=== PATIENT | female | born 1970 | race Caucasian/White ===

== ENCOUNTER → 2018-01-29 | Outpatient (CLI) | payer BC | END | disposition home or self-care (01) | LOC: KCIC MRI 13:28 | DX: M51.26 Other intervertebral disc displacement, lumbar region (principal); M51.36 Other intervertebral disc degeneration, lumbar region; M48.061 Spinal stenosis, lumbar region without neurogenic claudication | CPT/HCPCS: 72148 ==

== ENCOUNTER → 2018-02-05 | Outpatient (CLI) | payer BC | END | disposition home or self-care (01) | LOC: KCIC 13:02 | DX: M16.12 Unilateral primary osteoarthritis, left hip (principal) | CPT/HCPCS: 73502 ==

== ENCOUNTER → 2018-07-11 | Outpatient (CLI) | payer BC ==
[~2018-07-11] MED LIST: ATOR40TA PO; LEVO125T5 PO
[2018-07-11] MEDS: GADOBUTROL 10 MMOL/10 ML VIAL IV ONE (11:59)
--- NOTE | 2018-07-11 16:43 | KCIC ---
MRI pelvis with and without contrast July 11, 2018 INDICATION: Pelvic pain. Low back pain. COMPARISON: None available. TECHNIQUE: Multiplanar, multisequence MR imaging of the pelvis was performed before and after the administration of 8 cc gadolinium-based contrast. FINDINGS: Evaluation is degraded by motion artifact. No suspicious pathologically enlarged lymph nodes are identified in the pelvis. There is no free fluid. No free intraperitoneal air. Small large bowel loops are normal in caliber. No evidence for bowel obstruction or inflammation. Urinary bladder is within normal limits given degree of distention. No suspicious osseous abnormalities visualized. There is mild edema involving the right acetabulum without definite fracture or suspicious osseous abnormality. Findings may represent contusive changes. The uterus measures 8.1 cm (length) by 5.0 cm (AP) by 6.6 cm (transverse). There is thickening of the posterior junctional zone measuring up to 12 mm suggestive of adenomyosis. Circumscribed hypointense masses are identified compatible leiomyoma ptosis. There is a subserosal pedunculated mass along the right uterine fundus which measures 3.0 x 2.8 x 2.8 cm. A right anterior lower uterine segment circumscribed mass which is predominantly intramural measures 1.9 x 1.2 x 2.1 cm. A left uterine body mass measures 1.7 x 1.2 x 1.6 cm and is predominantly intramural with a subserosal component. No endometrial fibroids are visualized. Nabothian cysts are identified measuring up to 11 mm. Left ovary measures 2.3 x 1.6 x 1.7 cm. Right ovary measures 2.6 x 1.7 x 1.8 cm. Follicular changes are identified bilaterally. No suspicious adnexal masses are identified. IMPRESSION: 1. Multiple uterine leiomyoma are identified predominantly intramural and a single pedunculated fibroid in the right fundus measuring 3.0 x 2.8 x 2.8 cm. 2. There suggestion of adenomyomatosis with thickening of the posterior junctional zone measuring up to 12 mm. Findings are limited by motion artifact. 3. No suspicious adnexal masses are identified. 4. There is edema involving the right superior acetabulum. Findings may represent bone contusion. Correlate with any recent history of trauma. No definite fracture is visualized. Electronically signed by: Marivel Tarango MD (07/11/2018 4:40 PM) [facility]
== END | disposition home or self-care (01) ==
LOC: KCIC MRI 10:44
PROVIDERS: ATTEND Neuromusculoskeletal Medicine & OMM
DX: D25.1 Intramural leiomyoma of uterus (principal); N88.8 Other specified noninflammatory disorders of cervix uteri; M16.12 Unilateral primary osteoarthritis, left hip
CPT/HCPCS: 72197; A9585

== ENCOUNTER → 2018-09-03 | Outpatient (CLI) | payer BC ==
[~2018-09-03] MED LIST changes: +GADOBUTROL 7.5 MMOL/7.5 ML VIAL INT ART ONE; +IOHEXOL 300 MG/ML 10ML VIAL. INT ART ONE; +LIDOCAINE 1% Multi-Dose 20 ML VIAL. ID ONE
--- NOTE | 2018-09-03 12:30 | KCIC ---
MR arthrogram right hip dated 09/03/2018 11:45 AM Indication: Hip pain , possible labral tear. . Pain Comparison: No comparison is available. Technique: Routine MR arthrogram performed following the intra-articular injection of dilute gadolinium. Injection portion the study will be reported separately. Findings: Adequate distention of the joint space with contrast material. Small amount of contrast extends external to the joint capsule superior laterally. The right hip labrum is somewhat thinned and frayed in appearance. No discrete linear tear or displaced tear. No para labral cyst. There is mild thinning and surface irregularity of the articular cartilage of the anterior acetabulum and femoral head. No definite full-thickness cartilage defect, although there is some subchondral cystic change at the anterior acetabulum. No loose body. Minimal increased signal within the gluteus minimus and gluteus medius trochanteric attachment's. No focal tear. No significant trochanteric bursal fluid collection. The proximal hamstring tendon complex is intact. Iliopsoas is intact. Bone marrow signal is homogeneous. No marrow edema. Limited imaged portions of the pelvis are unremarkable. IMPRESSION: 1. Thinning and irregularity of the anterior superior right hip labrum, likely related to early degenerative fraying. No discrete tear. 2. 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 Near full-thickness cartilage loss over the anterior acetabulum and femoral head. 3. Mild gluteus minimus and gluteus medius tendinosis. Electronically signed by: Mark Hough MD (09/03/2018 12:26 PM) [email or web address]
--- NOTE | 2018-09-03 13:33 | KCIC ---
Fluoroscopic guided bilateral hip arthrogram for MRI dated 09/03/2018. No comparison available. Clinical data indication: Hip pain. TECHNIQUE: Potential benefits and risks of the procedure were discussed with the patient and informed consent was obtained. Bilateral hip were prepped and draped in a sterile fashion. After local anesthesia, a 22-gauge spinal needles were placed into the bilateral hip joint using fluoroscopic guidance. Approximately 15 cc of dilute gadolinium solution was injected in the bilateral hip and the needle was removed. Hemostasis was obtained the puncture site and a dry sterile dressing was applied. Patient tolerated the procedure well. There were no immediate complication. Patient was then sent to MR suite for further imaging. Fluoroscopic time 1.47 minutes on the right and 1.65 minutes on the left. 2 images. FINDINGS: Images show needle at the lateral femoral head/neck junction. Contrast material fills the joint spaces. IMPRESSION: Bilateral hip arthrogram for MRI. Electronically signed by: Mark Hough MD (09/03/2018 1:30 PM) [email or web address]
--- NOTE | 2018-09-03 14:54 | KCIC ---
MR arthrogram left hip dated 09/03/2018. No comparison available. CLINICAL INDICATION: Left hip pain. TECHNIQUE: Routine MR arthrogram of left hip performed following the intra-articular injection of dilute gadolinium. Injection portion the study will be reported separately. FINDINGS: Adequate distention of the joint space with contrast material. There is moderate hypertrophic change of the left hip joint with thinning and surface irregularity of the articular cartilage throughout. Probable full-thickness cartilage loss over the weightbearing surfaces acetabulum and weightbearing surface femoral head. There is outward convex deformity of the femoral head/neck junction. Mild subchondral edema within the acetabulum and femoral head. There is blunted morphology of the left hip labrum with little definable labral tissue superior laterally. No displaced component. No intra-articular loose body. There is a tiny para labral cyst. Mild increased signal within the gluteus minimus and gluteus medius tendons at their trochanteric attachment. Proximal hamstring tendon complex is intact. Iliopsoas is intact. No additional bony or soft tissue abnormality. IMPRESSION: 1. Moderate degenerative arthrosis and chondromalacia at the left hip joint with probable full-thickness cartilage loss at the weightbearing surfaces. 2. 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 3. Outward convex deformity of the lateral femoral head/neck junction raising the question of femoral acetabular impingement. 4. Mild gluteus minimus and gluteus medius tendinosis. Electronically signed by: Mark Hough MD (09/03/2018 2:51 PM) [facility]2
== END | disposition home or self-care (01) ==
LOC: KCIC 10:11
PROVIDERS: ATTEND Neuromusculoskeletal Medicine & OMM
DX: S73.192A Other sprain of left hip, initial encounter (principal); M16.0 Bilateral primary osteoarthritis of hip; M94.251 Chondromalacia, right hip; M76.01 Gluteal tendinitis, right hip; M94.252 Chondromalacia, left hip; X58.XXXA Exposure to other specified factors, initial encounter; Y93.89 Activity, other specified; Y92.89 Other specified places as the place of occurrence of the external cause; Y99.8 Other external cause status
CPT/HCPCS: 73525; 73722; A9585; Q9967

== ENCOUNTER → 2019-11-12 | Outpatient (CLI) | payer BC ==
[~2019-11-12] MED LIST changes: -GADOBUTROL 7.5 MMOL/7.5 ML VIAL INT ART ONE; -IOHEXOL 300 MG/ML 10ML VIAL. INT ART ONE; -LIDOCAINE 1% Multi-Dose 20 ML VIAL. ID ONE
--- NOTE | 2019-11-12 17:18 | KCIC ---
Bilateral digital screening mammograms and tomosynthesis Reason for examination: Routine screening. Comparison is made to previous study dated July 03, 2013 and June 26, 2011 Routine CC and MLO digital views obtained. Interpretation was made with the benefit of CAD. The skin and nipples show no abnormalities. No abnormal lymph nodes are seen. The breast parenchyma is scattered fibroglandular elements. (Breast density: Category B.) There are no suspicious masses, suspicious calcifications or architectural distortions. Left upper outer posterior breast intramammary lymph node is stable, with a separate smaller intramammary lymph node of the left outer posterior breast on MLO tomosynthesis, considered benign. Subcentimeter oval circumscribed mass right upper breast mid depth with benign-type calcifications typical of an involuted fibroadenoma, this mass was present on prior studies, considered benign. At the left upper outer breast 7 cm from the nipple on the reconstructive CC and MLO mammograms as well as on tomosynthesis CC image 54 and MLO tomosynthesis image 47 there is a subcentimeter oval circumscribed mass new from prior studies. Elsewhere scattered within both breasts are small glandular nodular densities. Impression: Left upper outer breast subcentimeter mass new from the prior study. Bilateral nodular glandular asymmetries. Further evaluation with bilateral breast ultrasound is advised. BI-RADS Category 0: Incomplete examination. "Our facility is accredited by the [employer] Mammography Program." This patient's information has been entered into a reminder system for the patient to be notified with the results of her examination and a target date for the next mammogram. Electronically signed by: Donta Valdez MD (11/12/2019 5:14 PM) [facility]
== END | disposition home or self-care (01) ==
LOC: KCIC MAMMO 12:51
PROVIDERS: ATTEND Nurse Practitioner Family
DX: Z12.31 Encounter for screening mammogram for malignant neoplasm of breast (principal); N63.21 Unspecified lump in the left breast, upper outer quadrant; N64.89 Other specified disorders of breast
CPT/HCPCS: 77063; 77067

== ENCOUNTER → 2019-11-20 | Outpatient (CLI) | payer BC ==
--- NOTE | 2019-11-20 14:28 | KCIC ---
Bilateral breast ultrasound: Reason for examination: Small nodular densities bilaterally on screening mammogram. Comparison is made to mammographic exam dated 11/12/2019. Bilateral whole breast ultrasound including evaluation of all 4 quadrants and the retroareolar and axillary regions of both breasts was performed. In the right breast at the 11:30 position 5 cm from the nipple, there is a small 3.1 mm hypoechoic nodule which is fairly well-circumscribed and has benign appearance. No other cystic or solid nodules are identified in the right breast. No abnormal appearing lymph nodes are seen in the right axilla. In the left breast, there are no discrete cystic or solid nodules or architectural distortions. No abnormal appearing lymph nodes are seen in the axilla. IMPRESSION: Benign-appearing 3.1 mm nodule in the right breast at the 11:30 position. No discrete nodules in the left breast. Recommend reevaluation with right breast ultrasound in 6 months and reevaluation of the left breast with mammograms in 6 months. BI-RADS Category 3: Probably Benign. "Our facility is accredited by the [employer] Mammography [employer]." This patient's information has been entered into a reminder system for the patient to be notified with the results of her examination and a target date for the next mammogram. Electronically signed by: Claudette Mcgovern MD (11/20/2019 2:25 PM) [facility]
== END | disposition home or self-care (01) ==
LOC: KCIC US 13:35
PROVIDERS: ATTEND Nurse Practitioner Family
DX: N63.11 Unspecified lump in the right breast, upper outer quadrant (principal)
CPT/HCPCS: 76641

== ENCOUNTER → 2019-12-08 | Outpatient (CLI) | payer BC ==
--- NOTE | 2019-12-08 16:44 | KCIC ---
Pelvic ultrasound dated 12/08/2019. Comparison made to 07/11/2018. CLINICAL INDICATION: Follow-up fibroids. Pelvic pain. FINDINGS: Transabdominal and transvaginal imaging performed. Uterus measures 11.3 x 5.6 x 4.9 cm. Multiple solid nodular foci along the serosal margin, largest measures 3.6 cm at the fundus. The endometrial complex is within normal limits for thickness measuring 3 mm. Is a small nabothian cyst. Neither ovary is clearly identified, likely related to overlying bowel gas. There is no apparent adnexal mass or free fluid. IMPRESSION: 1. No apparent acute sonographic abnormality. 2. Fibroid uterus. Electronically signed by: Mark Hough MD (12/08/2019 4:41 PM) [id number]
== END | disposition home or self-care (01) ==
LOC: KCIC US 13:31
PROVIDERS: ATTEND Obstetrics & Gynecology Gynecologic Oncology
DX: D25.9 Leiomyoma of uterus, unspecified (principal); N88.8 Other specified noninflammatory disorders of cervix uteri
CPT/HCPCS: 76830; 76856